=== PATIENT | female | born 2005 | race Caucasian/White ===

== ENCOUNTER 2024-03-03 07:54 | Outpatient (CLI) | payer MEDICAID | END 2024-03-03 23:59 | disposition home or self-care (01) | LOC: RAD 07:54 | PROVIDERS: ATTEND Nurse Practitioner Obstetrics & Gynecology | DX: O09.90 Supervision of high risk pregnancy, unspecified, unspecified trimester (principal); Z3A.01 Less than 8 weeks gestation of pregnancy | CPT/HCPCS: 76801 ==

== ENCOUNTER 2024-03-09 22:25 | Emergency (ER) | payer MEDICAID ==
[~2024-03-09] VITALS: Ht 157.5 cm; Wt 46.4 kg
[2024-03-09 22:35] VITALS: TEMP 97.8
[2024-03-09] MEDS: normal saline 1000ML IV soln IVB ONE (22:57)
[2024-03-09] MEDS: ondansetron/PF 4mg/2ml inj IV ONE (22:57)
[2024-03-09] MEDS: dextrose 5%-normal saline 1,000 ML IV ONE (22:58)
[2024-03-09 23:14] LABS: BASOPHILS % (AUTO) 0.5 % (0-1); EOSINOPHILS % (AUTO) 0.2 % (0-6); HEMATOCRIT 43.1 % (35.0-45.0); HEMOGLOBIN 14.6 g/dl (12.0-16.0); LYMPHOCYTES # (AUTO) 1.1 X10'3 (1.1-4.8); LYMPHOCYTES % (AUTO) 13.3 % (21-51); MEAN CORPUSCULAR HEMOGLOBIN 29.7 PG (27.0-31.0); MEAN CORPUSCULAR HGB CONC 33.9 g/dL (33.0-36.5); MEAN CORPUSCULAR VOLUME 87.6 FL (78-98); MEAN PLATELET VOLUME 7.9 FL (7.4-10.4); MONOCYTES # (AUTO) 0.6 X10'3 (0-0.9); MONOCYTES % (AUTO) 7.8 % (2-12); NEUTROPHILS # (AUTO) 6.4 X10'3 (1.8-7.7); NEUTROPHILS % (AUTO) 78.2 % (42-75); PLATELET COUNT 343 X10'3 (140-440); RED BLOOD COUNT 4.92 X10'6 (4.20-5.60); RED CELL DISTRIBUTION WIDTH 12.6 % (11.5-14.5); WHITE BLOOD COUNT 8.2 X10'3 (4.5-11.0)
[2024-03-09 23:47] LABS: ANION GAP 12 (8-16); BLOOD UREA NITROGEN 16 MG/DL (7-18); BUN/CREATININE RATIO 22.2 (10.0-20.0); CALCIUM 9.5 MG/DL (8.5-10.1); CHLORIDE 102 MMOL/L (99-107); CREATININE 0.72 MG/DL (0.40-0.90); GLUCOSE 92 MG/DL (70-104); POTASSIUM 3.8 MMOL/L (3.5-5.1); SODIUM 139 MMOL/L (135-145); TOTAL CARBON DIOXIDE 25.4 MMOL/L (24-32); eCRCL 91 ML/MIN; eGFR > 90 ML/MIN
[2024-03-10 00:26] LABS: BILIRUBIN,URINE NEGATIVE (Neg); CLARITY,URINE CLEAR (Clear); COLOR,URINE YELLOW (Yellow); GLUCOSE, URINE >=1000 mg/dl (Neg); KETONES,URINE >=80 mg/dl (Neg); LEUKOCYTE ESTERASE ,URINE NEGATIVE (Neg); NITRITES, URINE NEGATIVE (Neg); OCCULT BLOOD,URINE NEGATIVE (Neg); PROTEIN,URINE NEGATIVE (Neg); UROBILINOGEN,URINE 0.2 E.U/dL (0.2-1.0)
[2024-03-10 00:39] LABS: BETA HCG,QUANTITATIVE 290886 mIU/ml
[2024-03-10 00:41] LABS: UA COLLECTION TYPE CLN CATCH MIDSTREAM
[2024-03-10 00:43] LABS: RBC,URINE 0-2 /HPF (0-2); WBC,URINE 0-4 /HPF (0-4)
[2024-03-10 00:44] LABS: BACTERIA,URINE NONE SEEN /HPF (Neg); MUCUS STRANDS NONE SEEN /LPF (Neg); SQUAMOUS EPITHELIAL CELL,UR FEW /LPF (FEW)
[2024-03-10] MEDS ORDERED: DOXY25TA58 PO (00:50)
[2024-03-10] MEDS ORDERED: PYRI-3 PO (00:50)
[2024-03-10 01:00] VITALS: BP 128/78; PULSE 89; RESP 14; O2SAT 100
== END 2024-03-10 01:03 | disposition home or self-care (01) ==
LOC: ER 22:26
DX: O21.0 Mild hyperemesis gravidarum (principal); Z3A.08 8 weeks gestation of pregnancy; Z88.0 Allergy status to penicillin; Z79.2 Long term (current) use of antibiotics; Z79.899 Other long term (current) drug therapy
CPT/HCPCS: 36415; 80048; 81001; 84702; 85025; 96361; 96374; 99283; J2405; J7030; J7042

== ENCOUNTER 2024-12-09 15:57 | Emergency (ER) | payer MEDICAID ==
[~2024-12-09] VITALS: Ht 157.5 cm; Wt 55.5 kg
[~2024-12-09 15:57] MED LIST: DOXY25TA58 PO; PYRI-3 PO
[2024-12-09 16:05] VITALS: BP 116/78; PULSE 95; RESP 16; TEMP 98; O2SAT 97
== END 2024-12-09 16:52 | disposition home or self-care (01) ==
LOC: ER 15:57
DX: O71.4 Obstetric high vaginal laceration alone (principal); Z79.899 Other long term (current) drug therapy; W06.XXXA Fall from bed, initial encounter; Y93.89 Activity, other specified; Y92.89 Other specified places as the place of occurrence of the external cause; Y99.8 Other external cause status
CPT/HCPCS: 99281; 99282